=== PATIENT | male | born 1990 | race Two or more races ===

== ENCOUNTER 2023-10-06 16:45 | Inpatient (IN) | payer MEDICAID, OTHER ==
[~2023-10-06] VITALS: Ht 180.3 cm; Wt 107.0 kg
[2023-10-06] MEDS ORDERED: SODIUM CHLORIDE 0.9% 1,000 ML IV ONE (17:45)
[2023-10-06] MEDS ORDERED: ACETAMINOPHEN IV 1000 MG/100ML (10MG/ML) IV ONE (17:45)
[2023-10-06 18:11] LABS: Basophils # (auto) 0.1 10 ^3/uL (0-0.2); Eosinophils # (auto) 0 10 ^3/uL (0-0.8); Hemoglobin 18.3 g/dL (13.5-17.5)
[2023-10-06 18:13] LABS: Basophils % (auto) 0.4 % (0.0-2.0); Hematocrit 54.9 % (41.0-53.0); Lymphocytes # (auto) 0.9 10 ^3/uL (0.4-5.4); Lymphocytes % (auto) 3.8 % (10.0-50.0); Mean Corpuscular Hgb Conc. 33.4 g/dL (32.0-36.0); Mean Corpuscular Volume 89.9 fL (80.0-100.0); Monocytes # (auto) 1.5 10 ^3/uL (0-1.3); Monocytes % (auto) 6.5 % (0.0-12.0); Neutrophils % (auto) 89.3 % (37.0-80.0); Nucleated Red Blood Cells % 0.1 %; Red Blood Cells 6.11 10^6/uL (4.5-5.90); White Blood Cell 22.4 10^3/uL (4.4-10.8)
[2023-10-06 18:39] LABS: Anion Gap 12 (5-15); BUN/Creatinine Ratio 10.6 (10.0-20.0); Lipase 36 U/L (12-53); Magnesium 1.5 mg/dL (1.6-2.6)
[2023-10-06] MEDS ORDERED: PIPERACILLIN-TAZOB 3.375GM 100 ML IV ONE (19:00)
[2023-10-06 19:04] LABS: Alanine Aminotransferase 71 U/L (7-40); Albumin 4.9 g/dL (3.2-4.8); Alkaline Phosphatase 55 U/L (46-116); Aspartate Aminotransferase 31 U/L (13-40); Bilirubin, Total 2.1 mg/dL (0.2-1.0); Blood Urea Nitrogen 14 mg/dL (9-23); Calcium 9.2 mg/dL (8.7-10.4); Carbon Dioxide 21 mmol/L (20-30); Chloride 102 mmol/L (98-107); Glucose 116 mg/dL (74-106); Potassium 4.2 mmol/L (3.5-5.1); Sodium 135 mmol/L (136-145); Total Protein 7.6 g/dL (5.7-8.2)
[2023-10-06 20:05] VITALS: PULSE 114; RESP 16; O2SAT 95
[2023-10-06 21:18] LABS: INR 1.31 (0.9-1.15); Prothrombin Time 13.5 sec (9.3-11.8)
[2023-10-06] MEDS ORDERED: MORPHINE SULFATE INJ 2 MG/ml SYRG IV PRN (21:30)
[2023-10-06] MEDS ORDERED: NITROGLYCERIN 0.4 MG SL TAB SL PRN (21:30)
[2023-10-06] MEDS: SODIUM CHLORIDE 0.9% 1,000 ML IV SCH (22:06)
[2023-10-06] MEDS ORDERED: ACETAMINOPHEN 325 MG TAB PO ONE (22:15)
[2023-10-06] MEDS ORDERED: HYDROmorphone HCL 2 MG/ML VL/or syr IV ONE (23:45)
[2023-10-07 01:44] LABS: Urine Bacteria NONE SEEN /hpf (None Seen); Urine Blood 1+ /uL (Negative); Urine Clarity Clear (Clear); Urine Color Yellow (Yellow); Urine Hyaline Cast FEW /lpf (0 - 2); Urine Protein, UAD 1+ (Negative); Urine Specific Gravity 1.038 (1.001-1.035); Urine Urobilinogen Normal (Negative); Urine WBC 4 /hpf (0 - 3)
[2023-10-07] MEDS: MORPHINE SULFATE INJ 2 MG/ml SYRG IV PRN ×3 (02:05→06:44)
[2023-10-07] MEDS: PIPERACILLIN-TAZOB 3.375GM 100 ML IV SCH ×3 (04:14→20:02)
[2023-10-07] MEDS: ONDANSETRON HCL 4 MG/2 ML VIAL IV PRN (04:17)
[2023-10-07 05:12] VITALS: BP 135/70; PULSE 105; RESP 20; TEMP 97.6; O2SAT 94
[2023-10-07] MEDS: SODIUM CHLORIDE 0.9% 1,000 ML IV SCH ×2 (05:30→21:30)
[2023-10-07 06:25] LABS: Basophils # (auto) 0 10 ^3/uL (0-0.2); Basophils % (auto) 0.1 % (0.0-2.0); Eosinophils # (auto) 0 10 ^3/uL (0-0.8); Eosinophils % (auto) 0.1 % (0.0-7.0); Hematocrit 50.3 % (41.0-53.0); Lymphocytes # (auto) 0.8 10 ^3/uL (0.4-5.4); Lymphocytes % (auto) 3.8 % (10.0-50.0); Mean Corpuscular Hemoglobin 30.6 pg (28.0-32.0); Mean Corpuscular Hgb Conc. 33.7 g/dL (32.0-36.0); Mean Corpuscular Volume 90.7 fL (80.0-100.0); Monocytes # (auto) 1.4 10 ^3/uL (0-1.3); Monocytes % (auto) 7.2 % (0.0-12.0); Neutrophils # (auto) 17.5 10 ^3/uL (1.6-8.6); Neutrophils % (auto) 88.8 % (37.0-80.0); Red Blood Cells 5.55 10^6/uL (4.5-5.90); White Blood Cell 19.7 10^3/uL (4.4-10.8)
[2023-10-07 06:43] LABS: Alanine Aminotransferase 53 U/L (7-40); Albumin 4.4 g/dL (3.2-4.8); Alkaline Phosphatase 54 U/L (46-116); Anion Gap 9 (5-15); Aspartate Aminotransferase 23 U/L (13-40); BUN/Creatinine Ratio 11.4 (10.0-20.0); Blood Urea Nitrogen 15 mg/dL (9-23); Calcium 8.9 mg/dL (8.5-10.1); Carbon Dioxide 24 mmol/L (20-30); Chloride 104 mmol/L (98-107); Glucose 101 mg/dL (74-106); Potassium 4.3 mmol/L (3.5-5.1); Sodium 137 mmol/L (136-145); Total Protein 7.2 g/dL (5.7-8.2)
[2023-10-07] MEDS ORDERED: metroNIDAZOLE 500MG/100ML 100 ML IV ONE (07:15)
[2023-10-07] MEDS ORDERED: DexAMETHasone SOD PHOS 10MG/1ML VIAL INJ ONE (07:45)
[2023-10-07] MEDS ORDERED: NEOSTIGMINE 1 MG/ML INJ (10mg/10ML VIAL) ONE (07:45)
[2023-10-07] MEDS ORDERED: MEPERIDINE HCL (25 MG/ML) 1ML VIAL ONE (07:45)
[2023-10-07] MEDS ORDERED: MIDAZOLAM HCL 2MG/2ML 2ml VIAL (1mg/ml) ONE (07:45)
[2023-10-07] MEDS ORDERED: SODIUM CHLORIDE LOCK 10 ML ONE (07:45)
[2023-10-07] MEDS ORDERED: GLYCOPYRROLATE 0.2 MG/ML 1ML VIAL ONE (07:45)
[2023-10-07] MEDS ORDERED: PROPOFOL 10 MG/ML 20 ML IV ONE (07:45)
[2023-10-07] MEDS ORDERED: ONDANSETRON HCL 4 MG/2 ML VIAL ONE (07:45)
[2023-10-07] MEDS ORDERED: fentaNYL CITRATE 100 MCG/2 ML VL ONE (07:45)
[2023-10-07 08:00] VITALS: PULSE 96
[2023-10-07] MEDS ORDERED: BUPIVACAINE HCL 0.25% P/F 10 ML VIAL ONE (08:14)
[2023-10-07] MEDS ORDERED: LIDOCAINE W/ EPINEPHRINE 2% INJ 20ML VIAL ONE (08:15)
[2023-10-07] MEDS ORDERED: METOCLOPRAMIDE HCL 5MG/ml INJ 2ml VIAL IV PRN (08:15)
[2023-10-07] MEDS ORDERED: MORPHINE SULFATE INJ 2 MG/ml SYRG IV PRN (08:15)
[2023-10-07] MEDS ORDERED: HYDROmorphone HCL 2 MG/ML VL/or syr IV PRN ×2 (08:15)
[2023-10-07] MEDS ORDERED: KETOROLAC TROMETH 60MG/2ML VIAL ONE (09:20)
[2023-10-07] MEDS ORDERED: D5W/SOD CHL 0.45%/KCL 20MEQ 1,000 ML IV SCH (09:30)
[2023-10-07 09:32] VITALS: O2SAT 95
[2023-10-07] MEDS ORDERED: metroNIDAZOLE 500MG/100ML 100 ML IV SCH (14:00)
[2023-10-07] MEDS: HYDROmorphone HCL 2 MG/ML VL/or syr IV PRN ×2 (16:08→23:06)
[2023-10-07 17:00] VITALS: BP 108/68; PULSE 78; RESP 16; TEMP 98.2; O2SAT 90
[2023-10-07 20:00] VITALS: PULSE 115
[2023-10-07 22:00] VITALS: BP 131/75; PULSE 106; RESP 18; TEMP 99.6; O2SAT 97
[2023-10-08] VITALS (10 sets, daily range): BP systolic 112–150; BP diastolic 75–94; PULSE 91–107; RESP 18–22; TEMP 98.2–99.6; O2SAT 86–97
[2023-10-08] MEDS: SODIUM CHLORIDE 0.9% 1,000 ML IV SCH ×3 (01:03→20:05)
[2023-10-08] MEDS: HYDROcodone-ACET 5/325MG TAB PO PRN ×3 (02:10→20:22)
[2023-10-08] MEDS: PIPERACILLIN-TAZOB 3.375GM 100 ML IV SCH ×3 (04:16→20:22)
[2023-10-08] MEDS: HYDROmorphone HCL 2 MG/ML VL/or syr IV PRN ×4 (04:37→22:51)
[2023-10-08 06:13] LABS: Basophils # (auto) 0 10 ^3/uL (0-0.2); Basophils % (auto) 0.1 % (0.0-2.0); Eosinophils # (auto) 0 10 ^3/uL (0-0.8); Eosinophils % (auto) 0.2 % (0.0-7.0); Hematocrit 45.8 % (41.0-53.0); Hemoglobin 15.3 g/dL (13.5-17.5); Lymphocytes # (auto) 0.6 10 ^3/uL (0.4-5.4); Lymphocytes % (auto) 4.6 % (10.0-50.0); Mean Corpuscular Hemoglobin 30.3 pg (28.0-32.0); Mean Corpuscular Hgb Conc. 33.4 g/dL (32.0-36.0); Mean Corpuscular Volume 90.5 fL (80.0-100.0); Monocytes # (auto) 0.6 10 ^3/uL (0-1.3); Monocytes % (auto) 5.2 % (0.0-12.0); Neutrophils # (auto) 11.1 10 ^3/uL (1.6-8.6); Neutrophils % (auto) 89.9 % (37.0-80.0); Nucleated Red Blood Cells % 0.1 %; Red Blood Cells 5.06 10^6/uL (4.5-5.90); White Blood Cell 12.3 10^3/uL (4.4-10.8)
[2023-10-08 06:48] LABS: Alanine Aminotransferase 45 U/L (7-40); Albumin 3.9 g/dL (3.2-4.8); Alkaline Phosphatase 54 U/L (46-116); Anion Gap 10 (5-15); Aspartate Aminotransferase 13 U/L (13-40); BUN/Creatinine Ratio 13.7 (10.0-20.0); Bilirubin, Total 2.5 mg/dL (0.2-1.0); Blood Urea Nitrogen 19 mg/dL (9-23); Calcium 8.5 mg/dL (8.5-10.1); Carbon Dioxide 23 mmol/L (20-30); Chloride 102 mmol/L (98-107); Glucose 109 mg/dL (74-106); Potassium 4.3 mmol/L (3.5-5.1); Sodium 135 mmol/L (136-145); Total Protein 6.6 g/dL (5.7-8.2)
[2023-10-08] MEDS ORDERED: SODIUM CHLORIDE 0.9% 1,000 ML IV SCH (09:30)
[2023-10-08] MEDS ORDERED: IPRATROPIUM BROM 0.5 MG/2.5ML INH SOL NEB PRN (18:30)
[2023-10-08] MEDS ORDERED: ALBUTEROL SULF 2.5 MG/0.5ML(0.5%) NEB SOLN NEB PRN (18:30)
[2023-10-08 19:20] LABS: Basophils # (auto) 0 10 ^3/uL (0-0.2); Basophils % (auto) 0.1 % (0.0-2.0); Eosinophils # (auto) 0 10 ^3/uL (0-0.8); Eosinophils % (auto) 0.1 % (0.0-7.0); Hematocrit 46.6 % (41.0-53.0); Hemoglobin 15.7 g/dL (13.5-17.5); Lymphocytes # (auto) 0.5 10 ^3/uL (0.4-5.4); Lymphocytes % (auto) 3.9 % (10.0-50.0); Mean Corpuscular Hemoglobin 30.6 pg (28.0-32.0); Mean Corpuscular Hgb Conc. 33.7 g/dL (32.0-36.0); Mean Corpuscular Volume 90.9 fL (80.0-100.0); Monocytes # (auto) 0.8 10 ^3/uL (0-1.3); Monocytes % (auto) 6.4 % (0.0-12.0); Neutrophils # (auto) 11.7 10 ^3/uL (1.6-8.6); Neutrophils % (auto) 89.5 % (37.0-80.0); Nucleated Red Blood Cells % 0.1 %; Red Blood Cells 5.13 10^6/uL (4.5-5.90); Red Cell Distribution Width 14.4 % (11.8-14.3); White Blood Cell 13.1 10^3/uL (4.4-10.8)
[2023-10-08 19:36] LABS: INR 1.14 (0.9-1.15); Partial Thromboplastin Time 28.6 SEC (24.5-34.5); Prothrombin Time 11.9 sec (9.3-11.8)
[2023-10-08 19:38] LABS: Alanine Aminotransferase 50 U/L (7-40); Albumin 3.9 g/dL (3.2-4.8); Alkaline Phosphatase 53 U/L (46-116); Anion Gap 6 (5-15); Aspartate Aminotransferase 26 U/L (13-40); BUN/Creatinine Ratio 15.6 (10.0-20.0); Bilirubin, Total 2.6 mg/dL (0.2-1.0); Blood Urea Nitrogen 21 mg/dL (9-23); Calcium 8.4 mg/dL (8.7-10.4); Carbon Dioxide 30 mmol/L (20-30); Chloride 100 mmol/L (98-107); Glucose 100 mg/dL (74-106); Potassium 4.6 mmol/L (3.5-5.1); Sodium 136 mmol/L (136-145); Total Protein 6.2 g/dL (5.7-8.2)
[2023-10-08] MEDS ORDERED: ENOXAPARIN SOD 120 MG/0.8 ML SYRINGE SC ONE (20:15)
[2023-10-09] VITALS (9 sets, daily range): BP systolic 141–154; BP diastolic 91–99; PULSE 81–104; RESP 16–20; TEMP 98.3–98.9; O2SAT 95–99
[2023-10-09] MEDS: PIPERACILLIN-TAZOB 3.375GM 100 ML IV SCH (03:51)
[2023-10-09] MEDS: HYDROmorphone HCL 2 MG/ML VL/or syr IV PRN (04:02)
[2023-10-09] MEDS: ONDANSETRON HCL 4 MG/2 ML VIAL IV PRN ×2 (04:05→19:55)
[2023-10-09 05:08] LABS: Basophils # (auto) 0 10 ^3/uL (0-0.2); Basophils % (auto) 0.1 % (0.0-2.0); Eosinophils # (auto) 0.1 10 ^3/uL (0-0.8); Eosinophils % (auto) 0.5 % (0.0-7.0); Hematocrit 46.9 % (41.0-53.0); Hemoglobin 15.3 g/dL (13.5-17.5); Lymphocytes # (auto) 0.5 10 ^3/uL (0.4-5.4); Lymphocytes % (auto) 4.1 % (10.0-50.0); Mean Corpuscular Hemoglobin 29.8 pg (28.0-32.0); Mean Corpuscular Hgb Conc. 32.7 g/dL (32.0-36.0); Mean Corpuscular Volume 91.3 fL (80.0-100.0); Monocytes % (auto) 7.6 % (0.0-12.0); Neutrophils # (auto) 11.7 10 ^3/uL (1.6-8.6); Neutrophils % (auto) 87.7 % (37.0-80.0); Red Blood Cells 5.14 10^6/uL (4.5-5.90); Red Cell Distribution Width 14.3 % (11.8-14.3); White Blood Cell 13.4 10^3/uL (4.4-10.8)
[2023-10-09 05:28] LABS: Alanine Aminotransferase 40 U/L (7-40); Albumin 4.1 g/dL (3.2-4.8); Alkaline Phosphatase 46 U/L (46-116); Anion Gap 6 (5-15); Aspartate Aminotransferase 19 U/L (13-40); BUN/Creatinine Ratio 13.1 (10.0-20.0); Bilirubin, Total 2.1 mg/dL (0.2-1.0); Blood Urea Nitrogen 16 mg/dL (9-23); Calcium 8.8 mg/dL (8.7-10.4); Carbon Dioxide 29 mmol/L (20-30); Chloride 100 mmol/L (98-107); Glucose 105 mg/dL (74-106); Potassium 4.4 mmol/L (3.5-5.1); Sodium 135 mmol/L (136-145)
[2023-10-09 05:29] LABS: Total Protein 6.9 g/dL (5.7-8.2)
[2023-10-09] MEDS: SODIUM CHLORIDE 0.9% 1,000 ML IV SCH ×2 (07:50→21:10)
[2023-10-09] MEDS: KETOROLAC TROMETH 30 MG/ML 1ML VIAL IV PRN ×2 (10:42→21:51)
[2023-10-09] MEDS ORDERED: MEROPENEM 1GM IVPB 100 ML IV ONE (10:45)
[2023-10-09] MEDS ORDERED: FUROSEMIDE 20 MG/2 ML VIAL IV ONE (11:45)
[2023-10-09] MEDS ORDERED: MEROPENEM 1GM IVPB 100 ML IV SCH (14:00)
[2023-10-10] VITALS (10 sets, daily range): BP systolic 127–156; BP diastolic 76–102; PULSE 81–100; RESP 18–22; TEMP 98.5–98.9; O2SAT 91–99
[2023-10-10] MEDS: MEROPENEM 1GM IVPB 100 ML IV SCH ×3 (01:18→15:23)
[2023-10-10 06:00] LABS: Basophils # (auto) 0 10 ^3/uL (0-0.2); Basophils % (auto) 0.1 % (0.0-2.0); Eosinophils # (auto) 0.1 10 ^3/uL (0-0.8); Eosinophils % (auto) 1.3 % (0.0-7.0); Hematocrit 45.2 % (41.0-53.0); Hemoglobin 15.3 g/dL (13.5-17.5); Lymphocytes # (auto) 0.9 10 ^3/uL (0.4-5.4); Lymphocytes % (auto) 8.2 % (10.0-50.0); Mean Corpuscular Hemoglobin 30.6 pg (28.0-32.0); Mean Corpuscular Volume 90.1 fL (80.0-100.0); Monocytes # (auto) 1.2 10 ^3/uL (0-1.3); Monocytes % (auto) 11.2 % (0.0-12.0); Neutrophils # (auto) 8.3 10 ^3/uL (1.6-8.6); Neutrophils % (auto) 79.2 % (37.0-80.0); Nucleated Red Blood Cells % 0.1 %; Red Blood Cells 5.02 10^6/uL (4.5-5.90); Red Cell Distribution Width 14.5 % (11.8-14.3); White Blood Cell 10.5 10^3/uL (4.4-10.8)
[2023-10-10 06:12] LABS: Alanine Aminotransferase 30 U/L (7-40); Albumin 3.9 g/dL (3.2-4.8); Alkaline Phosphatase 48 U/L (46-116); Anion Gap 7 (5-15); Aspartate Aminotransferase 13 U/L (13-40); BUN/Creatinine Ratio 16.1 (10.0-20.0); Blood Urea Nitrogen 20 mg/dL (9-23); Calcium 8.8 mg/dL (8.7-10.4); Carbon Dioxide 30 mmol/L (20-30); Chloride 99 mmol/L (98-107); Glucose 99 mg/dL (74-106); Potassium 4.6 mmol/L (3.5-5.1); Sodium 136 mmol/L (136-145)
[2023-10-10 06:13] LABS: Bilirubin, Total 1.8 mg/dL (0.2-1.0); Total Protein 6.5 g/dL (5.7-8.2)
[2023-10-10] MEDS: HYDROcodone-ACET 5/325MG TAB PO PRN (06:41)
[2023-10-10] MEDS: SODIUM CHLORIDE 0.9% 1,000 ML IV SCH (08:26)
[2023-10-10] MEDS: ONDANSETRON HCL 4 MG/2 ML VIAL IV PRN (08:31)
[2023-10-10] MEDS: KETOROLAC TROMETH 30 MG/ML 1ML VIAL IV PRN ×2 (12:02→18:39)
[2023-10-11] MEDS: MEROPENEM 1GM IVPB 100 ML IV SCH ×4 (00:07→19:08)
[2023-10-11] MEDS: KETOROLAC TROMETH 30 MG/ML 1ML VIAL IV PRN ×4 (00:49→21:03)
[2023-10-11] MEDS: ONDANSETRON HCL 4 MG/2 ML VIAL IV PRN ×5 (00:53→22:41)
[2023-10-11 05:00] VITALS: BP 145/87; PULSE 80; RESP 19; TEMP 98; O2SAT 95
[2023-10-11 06:19] LABS: Hematocrit 47.7 % (41.0-53.0); Hemoglobin 16.2 g/dL (13.5-17.5); Mean Corpuscular Hemoglobin 30.3 pg (28.0-32.0); Mean Corpuscular Volume 89.3 fL (80.0-100.0); Red Blood Cells 5.34 10^6/uL (4.5-5.90); Red Cell Distribution Width 14.3 % (11.8-14.3); White Blood Cell 9.5 10^3/uL (4.4-10.8)
[2023-10-11 06:48] LABS: Basophils % (manual) 0 (0.0-2.0); Blast Cells 0; Metamyelocytes % 0; Myelocytes % 0; Promyelocytes % 0; Reactive Lymphocytes 0
[2023-10-11 06:52] LABS: Chloride 100 mmol/L (98-107); Potassium 4.3 mmol/L (3.5-5.1); Sodium 136 mmol/L (136-145)
[2023-10-11 06:53] LABS: Anion Gap 7 (5-15); Calcium 8.9 mg/dL (8.7-10.4); Carbon Dioxide 29 mmol/L (20-30)
[2023-10-11 06:58] LABS: BUN/Creatinine Ratio 18.2 (10.0-20.0); Blood Urea Nitrogen 22 mg/dL (9-23); Glucose 98 mg/dL (74-106)
[2023-10-11 08:00] VITALS: BP 158/102; PULSE 82; RESP 21; TEMP 98.5; O2SAT 98
[2023-10-11 08:04] LABS: Band Neutrophils % (manual) 3; Eosinophils % (manual) 1 (0-7); Lymphocytes % (manual) 11 (10.0-50.0); Monocytes % (manual) 14 (0-12); Platelet Estimate Adequate; RBC Morphology Normal
[2023-10-11 12:00] VITALS: BP 145/92; PULSE 65; RESP 21; TEMP 98.5; O2SAT 95
[2023-10-11 14:25] VITALS: O2SAT 100
[2023-10-11 16:00] VITALS: BP 154/96; PULSE 75; RESP 20; TEMP 97.7; O2SAT 95
[2023-10-11 20:00] VITALS: BP 155/100; PULSE 78; PULSE 86; RESP 24; TEMP 98.5; O2SAT 98
[2023-10-12] VITALS (7 sets, daily range): BP systolic 136–152; BP diastolic 87–102; PULSE 66–83; RESP 17–18; TEMP 98.3–98.9; O2SAT 95–98
[2023-10-12] MEDS: MEROPENEM 1GM IVPB 100 ML IV SCH ×3 (00:02→16:01)
[2023-10-12] MEDS: ONDANSETRON HCL 4 MG/2 ML VIAL IV PRN (03:56)
[2023-10-12] MEDS: KETOROLAC TROMETH 30 MG/ML 1ML VIAL IV PRN ×3 (04:05→21:26)
[2023-10-12] MEDS ORDERED: cloNIDine HCL 0.1 MG TAB PO ONE (16:45)
[2023-10-13] MEDS: MEROPENEM 1GM IVPB 100 ML IV SCH ×3 (00:04→16:13)
[2023-10-13 05:00] VITALS: BP 142/86; PULSE 67; RESP 19; TEMP 98.8; O2SAT 97
[2023-10-13 05:54] LABS: Hematocrit 46.4 % (41.0-53.0); Hemoglobin 15.1 g/dL (13.5-17.5); Mean Corpuscular Hemoglobin 29.3 pg (28.0-32.0); Mean Corpuscular Hgb Conc. 32.6 g/dL (32.0-36.0); Mean Corpuscular Volume 89.6 fL (80.0-100.0); Red Blood Cells 5.17 10^6/uL (4.5-5.90); Red Cell Distribution Width 14.4 % (11.8-14.3); White Blood Cell 13.6 10^3/uL (4.4-10.8)
[2023-10-13 06:09] LABS: Alanine Aminotransferase 41 U/L (7-40); Albumin 3.8 g/dL (3.2-4.8); Alkaline Phosphatase 46 U/L (46-116); Anion Gap 6 (5-15); Aspartate Aminotransferase 25 U/L (13-40); BUN/Creatinine Ratio 12.8 (10.0-20.0); Bilirubin, Total 2.2 mg/dL (0.2-1.0); Blood Urea Nitrogen 17 mg/dL (9-23); Calcium 9.1 mg/dL (8.7-10.4); Carbon Dioxide 30 mmol/L (20-30); Chloride 100 mmol/L (98-107); Glucose 91 mg/dL (74-106); Potassium 4.7 mmol/L (3.5-5.1); Sodium 136 mmol/L (136-145); Total Protein 6.6 g/dL (5.7-8.2)
[2023-10-13 07:12] LABS: Band Neutrophils % (manual) 0; Basophils % (manual) 0 (0.0-2.0); Blast Cells 0; Eosinophils % (manual) 0 (0-7); Metamyelocytes % 0; Promyelocytes % 0; Reactive Lymphocytes 0
[2023-10-13 08:00] VITALS: BP 136/77; PULSE 71; RESP 15; TEMP 98.1; O2SAT 99
[2023-10-13 09:00] VITALS: BP 136/77; PULSE 71; RESP 15; TEMP 98.1; O2SAT 99
[2023-10-13] MEDS ORDERED: amLODIPine BESYLATE 5 MG TAB PO ONE (11:30)
[2023-10-13] MEDS: SODIUM CHLORIDE 0.9% 1,000 ML IV SCH (11:53)
[2023-10-13 12:37] LABS: Lymphocytes % (manual) 16 (10.0-50.0); Monocytes % (manual) 8 (0-12); Myelocytes % 5; Platelet Estimate Adequate
[2023-10-13] MEDS: HYDROcodone-ACET 5/325MG TAB PO PRN ×2 (12:41→21:40)
[2023-10-13 13:00] VITALS: BP 133/85; PULSE 65; RESP 17; TEMP 98.8; O2SAT 94
[2023-10-13] MEDS ORDERED: LINEZOLID 600MG/300ML 300 ML IV ONE (13:00)
[2023-10-13 17:00] VITALS: BP 145/89; PULSE 88; RESP 19; TEMP 99; O2SAT 93
[2023-10-13] MEDS: LINEZOLID 600MG/300ML 300 ML IV SCH (21:41)
[2023-10-13 22:00] VITALS: BP 147/87; PULSE 82; RESP 20; TEMP 98.8; O2SAT 93
[2023-10-14] MEDS: MEROPENEM 1GM IVPB 100 ML IV SCH ×3 (00:02→19:35)
[2023-10-14] MEDS: SODIUM CHLORIDE 0.9% 1,000 ML IV SCH ×2 (04:10→22:58)
[2023-10-14 05:00] VITALS: BP 142/84; PULSE 69; RESP 20; TEMP 98.9; O2SAT 93
[2023-10-14] MEDS: HYDROcodone-ACET 5/325MG TAB PO PRN ×3 (05:39→22:58)
[2023-10-14 07:30] VITALS: PULSE 73; RESP 18; O2SAT 95
[2023-10-14 07:30] LABS: Anion Gap 6 (5-15); Carbon Dioxide 31 mmol/L (20-30); Chloride 100 mmol/L (98-107); Sodium 137 mmol/L (136-145)
[2023-10-14 07:31] LABS: Calcium 8.8 mg/dL (8.7-10.4)
[2023-10-14 07:36] LABS: BUN/Creatinine Ratio 11.1 (10.0-20.0); Blood Urea Nitrogen 12 mg/dL (9-23); Glucose 80 mg/dL (74-106); Hematocrit 47.4 % (41.0-53.0); Hemoglobin 15.4 g/dL (13.5-17.5); Mean Corpuscular Hemoglobin 29.4 pg (28.0-32.0); Mean Corpuscular Hgb Conc. 32.6 g/dL (32.0-36.0); Mean Corpuscular Volume 90.4 fL (80.0-100.0); Red Blood Cells 5.24 10^6/uL (4.5-5.90); Red Cell Distribution Width 14.8 % (11.8-14.3); White Blood Cell 13.9 10^3/uL (4.4-10.8)
[2023-10-14 07:50] LABS: Band Neutrophils % (manual) 0; Basophils % (manual) 0 (0.0-2.0); Blast Cells 0; Metamyelocytes % 0; Promyelocytes % 0; Reactive Lymphocytes 0
[2023-10-14 09:00] VITALS: BP 138/93; PULSE 73; RESP 20; TEMP 98.6; O2SAT 94
[2023-10-14] MEDS: amLODIPine BESYLATE 5 MG TAB PO SCH (10:49)
[2023-10-14] MEDS: LINEZOLID 600MG/300ML 300 ML IV SCH (10:49)
[2023-10-14] MEDS ORDERED: VANCOMYCIN PER PHARMACY 0 MG IV SCH (11:00)
[2023-10-14] MEDS ORDERED: VANCOMYCIN 1GM/200ML 200 ML IV SCH (11:00)
[2023-10-14 13:00] VITALS: BP 147/93; PULSE 83; RESP 18; TEMP 98.4; O2SAT 95
[2023-10-14 13:13] LABS: Eosinophils % (manual) 1 (0-7); Lymphocytes % (manual) 12 (10.0-50.0); Monocytes % (manual) 9 (0-12); Myelocytes % 4; Platelet Estimate Adequate
[2023-10-14] MEDS: metroNIDAZOLE 500 MG TAB PO SCH ×2 (14:54→22:54)
[2023-10-14 17:00] VITALS: BP 144/74; PULSE 66; RESP 18; TEMP 98.8; O2SAT 93
[2023-10-14 22:00] VITALS: BP 113/77; PULSE 77; RESP 18; TEMP 99.4; O2SAT 94
[2023-10-14] MEDS: VANCOMYCIN 1GM/200ML 200 ML IV SCH (22:55)
[2023-10-15] VITALS (7 sets, daily range): BP systolic 118–142; BP diastolic 58–83; PULSE 60–84; RESP 15–24; TEMP 97.9–98.7; O2SAT 94–96
[2023-10-15] MEDS: MEROPENEM 1GM IVPB 100 ML IV SCH ×3 (03:40→21:08)
[2023-10-15] MEDS: metroNIDAZOLE 500 MG TAB PO SCH ×3 (05:22→21:04)
[2023-10-15 05:47] LABS: Hematocrit 45.5 % (41.0-53.0); Hemoglobin 14.9 g/dL (13.5-17.5); Mean Corpuscular Hemoglobin 29.5 pg (28.0-32.0); Mean Corpuscular Hgb Conc. 32.8 g/dL (32.0-36.0); Mean Corpuscular Volume 90.1 fL (80.0-100.0); Red Blood Cells 5.05 10^6/uL (4.5-5.90); Red Cell Distribution Width 14.7 % (11.8-14.3); White Blood Cell 13.9 10^3/uL (4.4-10.8)
[2023-10-15 05:53] LABS: Anion Gap 5 (5-15); Calcium 8.6 mg/dL (8.7-10.4); Carbon Dioxide 27 mmol/L (20-30); Chloride 103 mmol/L (98-107); Potassium 4.8 mmol/L (3.5-5.1); Sodium 135 mmol/L (136-145)
[2023-10-15 05:59] LABS: BUN/Creatinine Ratio 12.7 (10.0-20.0); Blood Urea Nitrogen 14 mg/dL (9-23); Glucose 81 mg/dL (74-106)
[2023-10-15 06:12] LABS: Basophils % (manual) 0 (0.0-2.0); Blast Cells 0; Eosinophils % (manual) 0 (0-7); Promyelocytes % 0; Reactive Lymphocytes 0
[2023-10-15] MEDS: VANCOMYCIN 1GM/200ML 200 ML IV SCH ×3 (06:46→23:03)
[2023-10-15 08:16] LABS: Band Neutrophils % (manual) 11; Lymphocytes % (manual) 11 (10.0-50.0); Metamyelocytes % 8; Monocytes % (manual) 4 (0-12); Myelocytes % 3; Platelet Estimate Adequate
[2023-10-15] MEDS: amLODIPine BESYLATE 5 MG TAB PO SCH (11:30)
[2023-10-15] MEDS: HYDROcodone-ACET 5/325MG TAB PO PRN ×2 (11:31→20:37)
[2023-10-15] MEDS: SODIUM CHLORIDE 0.9% 1,000 ML IV SCH (13:30)
[2023-10-16 05:00] VITALS: BP 126/88; PULSE 62; RESP 16; TEMP 98; O2SAT 99
[2023-10-16 06:33] LABS: Basophils # (auto) 0.1 10 ^3/uL (0-0.2); Basophils % (auto) 0.4 % (0.0-2.0); Eosinophils # (auto) 0.1 10 ^3/uL (0-0.8); Eosinophils % (auto) 1.1 % (0.0-7.0); Hematocrit 44.9 % (41.0-53.0); Lymphocytes # (auto) 1.6 10 ^3/uL (0.4-5.4); Lymphocytes % (auto) 11.8 % (10.0-50.0); Mean Corpuscular Hemoglobin 30.1 pg (28.0-32.0); Mean Corpuscular Hgb Conc. 33.4 g/dL (32.0-36.0); Mean Corpuscular Volume 90.1 fL (80.0-100.0); Monocytes % (auto) 7.3 % (0.0-12.0); Neutrophils # (auto) 10.9 10 ^3/uL (1.6-8.6); Neutrophils % (auto) 79.4 % (37.0-80.0); Red Blood Cells 4.99 10^6/uL (4.5-5.90); Red Cell Distribution Width 14.6 % (11.8-14.3); White Blood Cell 13.7 10^3/uL (4.4-10.8)
[2023-10-16] MEDS: metroNIDAZOLE 500 MG TAB PO SCH ×3 (06:33→21:23)
[2023-10-16] MEDS: VANCOMYCIN 1GM/200ML 200 ML IV SCH ×3 (06:33→23:21)
[2023-10-16] MEDS: MEROPENEM 1GM IVPB 100 ML IV SCH ×3 (06:34→20:07)
[2023-10-16] MEDS: SODIUM CHLORIDE 0.9% 1,000 ML IV SCH (06:34)
[2023-10-16] MEDS: HYDROcodone-ACET 5/325MG TAB PO PRN ×3 (06:39→23:21)
[2023-10-16 08:00] VITALS: BP 123/75; PULSE 67; RESP 16; TEMP 98.1; O2SAT 95
[2023-10-16] MEDS: amLODIPine BESYLATE 5 MG TAB PO SCH (09:36)
[2023-10-16] MEDS ORDERED: FUROSEMIDE 20 MG/2 ML VIAL IV ONE (09:45)
[2023-10-16] MEDS ORDERED: POTASSIUM CHL 20 Meq TABLET PO ONE (09:45)
[2023-10-16 12:00] VITALS: BP 130/68; PULSE 69; RESP 16; TEMP 98.4; O2SAT 97
[2023-10-16 16:51] VITALS: BP 132/82; PULSE 77; RESP 16; TEMP 98.3; O2SAT 97
[2023-10-16 22:00] VITALS: BP 113/67; PULSE 65; RESP 18; TEMP 98.4; O2SAT 96
[2023-10-17] VITALS (7 sets, daily range): BP systolic 115–136; BP diastolic 68–79; PULSE 54–88; RESP 16–20; TEMP 97.7–98.8; O2SAT 96–98
[2023-10-17] MEDS: MEROPENEM 1GM IVPB 100 ML IV SCH ×3 (02:57→18:55)
[2023-10-17] MEDS: SODIUM CHLORIDE 0.9% 1,000 ML IV SCH ×2 (03:49→15:30)
[2023-10-17] MEDS: metroNIDAZOLE 500 MG TAB PO SCH ×3 (05:27→21:23)
[2023-10-17] MEDS: VANCOMYCIN 1GM/200ML 200 ML IV SCH ×3 (06:00→23:29)
[2023-10-17 06:17] LABS: Basophils # (auto) 0.1 10 ^3/uL (0-0.2); Basophils % (auto) 0.4 % (0.0-2.0); Eosinophils # (auto) 0.2 10 ^3/uL (0-0.8); Neutrophils # (auto) 10.8 10 ^3/uL (1.6-8.6); Nucleated Red Blood Cells % 0.1 %; Red Cell Distribution Width 14.8 % (11.8-14.3)
[2023-10-17 06:20] LABS: Eosinophils % (auto) 1.2 % (0.0-7.0); Hematocrit 46.6 % (41.0-53.0); Hemoglobin 15.4 g/dL (13.5-17.5); Lymphocytes # (auto) 1.7 10 ^3/uL (0.4-5.4); Lymphocytes % (auto) 12.7 % (10.0-50.0); Mean Corpuscular Hemoglobin 29.6 pg (28.0-32.0); Mean Corpuscular Hgb Conc. 33.1 g/dL (32.0-36.0); Mean Corpuscular Volume 89.5 fL (80.0-100.0); Monocytes # (auto) 0.9 10 ^3/uL (0-1.3); Monocytes % (auto) 6.9 % (0.0-12.0); Neutrophils % (auto) 78.8 % (37.0-80.0); Red Blood Cells 5.21 10^6/uL (4.5-5.90); White Blood Cell 13.7 10^3/uL (4.4-10.8)
[2023-10-17] MEDS: amLODIPine BESYLATE 5 MG TAB PO SCH (08:52)
[2023-10-17] MEDS: HYDROcodone-ACET 5/325MG TAB PO PRN ×2 (14:51→21:24)
[2023-10-18] VITALS (7 sets, daily range): BP systolic 121–137; BP diastolic 67–79; PULSE 69–88; RESP 18–21; TEMP 97.3–98.2; O2SAT 92–100
[2023-10-18] MEDS: MEROPENEM 1GM IVPB 100 ML IV SCH ×3 (02:29→18:26)
[2023-10-18 04:59] LABS: White Blood Cell 12.9 10^3/uL (4.4-10.8)
[2023-10-18 05:01] LABS: Hematocrit 46.5 % (41.0-53.0); Hemoglobin 15.8 g/dL (13.5-17.5); Mean Corpuscular Hemoglobin 30.4 pg (28.0-32.0); Mean Corpuscular Hgb Conc. 33.9 g/dL (32.0-36.0); Mean Corpuscular Volume 89.6 fL (80.0-100.0); Red Blood Cells 5.19 10^6/uL (4.5-5.90); Red Cell Distribution Width 14.7 % (11.8-14.3)
[2023-10-18 05:17] LABS: Basophils % (manual) 0 (0.0-2.0); Blast Cells 0; Eosinophils % (manual) 0 (0-7); Metamyelocytes % 0; Myelocytes % 0; Promyelocytes % 0; Reactive Lymphocytes 0
[2023-10-18] MEDS: metroNIDAZOLE 500 MG TAB PO SCH ×3 (05:34→21:16)
[2023-10-18] MEDS: VANCOMYCIN 1GM/200ML 200 ML IV SCH ×3 (05:57→23:16)
[2023-10-18 07:09] LABS: Band Neutrophils % (manual) 3; Lymphocytes % (manual) 11 (10.0-50.0); Monocytes % (manual) 1 (0-12)
[2023-10-18 07:14] LABS: Platelet Estimate Increased; RBC Morphology Normal
[2023-10-18] MEDS: SODIUM CHLORIDE 0.9% 1,000 ML IV SCH ×2 (08:24→21:16)
[2023-10-18] MEDS: amLODIPine BESYLATE 5 MG TAB PO SCH (08:25)
[2023-10-18] MEDS: HYDROcodone-ACET 5/325MG TAB PO PRN ×2 (08:27→17:22)
[2023-10-19] VITALS (7 sets, daily range): BP systolic 116–132; BP diastolic 68–76; PULSE 59–98; RESP 18–20; TEMP 98–98.8; O2SAT 95–98
[2023-10-19] MEDS: HYDROcodone-ACET 5/325MG TAB PO PRN (02:10)
[2023-10-19] MEDS: MEROPENEM 1GM IVPB 100 ML IV SCH ×3 (02:14→20:14)
[2023-10-19] MEDS: metroNIDAZOLE 500 MG TAB PO SCH ×3 (05:44→22:04)
[2023-10-19] MEDS: amLODIPine BESYLATE 5 MG TAB PO SCH (09:21)
[2023-10-19] MEDS: VANCOMYCIN 1GM/200ML 200 ML IV SCH ×3 (09:22→23:14)
[2023-10-19] MEDS: SODIUM CHLORIDE 0.9% 1,000 ML IV SCH (17:30)
[2023-10-19] MEDS: ACETAMINOPHEN 325 MG TAB PO PRN (22:04)
[2023-10-20] MEDS: MEROPENEM 1GM IVPB 100 ML IV SCH ×3 (02:29→20:03)
[2023-10-20] MEDS: ACETAMINOPHEN 325 MG TAB PO PRN (03:44)
[2023-10-20 05:00] VITALS: BP 132/75; PULSE 76; RESP 18; TEMP 98; O2SAT 97
[2023-10-20 05:53] LABS: Basophils # (auto) 0.1 10 ^3/uL (0-0.2); Basophils % (auto) 0.7 % (0.0-2.0); Eosinophils # (auto) 0.2 10 ^3/uL (0-0.8); Eosinophils % (auto) 1.7 % (0.0-7.0); Hemoglobin 15.5 g/dL (13.5-17.5); Lymphocytes # (auto) 1.8 10 ^3/uL (0.4-5.4)
[2023-10-20 05:55] LABS: Hematocrit 46.1 % (41.0-53.0); Mean Corpuscular Hemoglobin 30.2 pg (28.0-32.0); Mean Corpuscular Hgb Conc. 33.7 g/dL (32.0-36.0); Mean Corpuscular Volume 89.8 fL (80.0-100.0); Monocytes # (auto) 1.3 10 ^3/uL (0-1.3); Monocytes % (auto) 11.7 % (0.0-12.0); Neutrophils # (auto) 7.7 10 ^3/uL (1.6-8.6); Neutrophils % (auto) 69.9 % (37.0-80.0); Nucleated Red Blood Cells % 0.2 %; Red Blood Cells 5.13 10^6/uL (4.5-5.90); Red Cell Distribution Width 14.8 % (11.8-14.3)
[2023-10-20] MEDS: metroNIDAZOLE 500 MG TAB PO SCH ×3 (06:36→21:11)
[2023-10-20] MEDS: VANCOMYCIN 1GM/200ML 200 ML IV SCH ×3 (06:36→23:49)
[2023-10-20 08:47] VITALS: BP 129/68; PULSE 70; RESP 20; TEMP 98; O2SAT 97
[2023-10-20] MEDS: SODIUM CHLORIDE 0.9% 1,000 ML IV SCH (09:53)
[2023-10-20] MEDS ORDERED: traMADol HCL 50 MG TAB PO PRN (11:15)
[2023-10-20 12:38] VITALS: BP 140/73; PULSE 80; RESP 20; TEMP 98.3; O2SAT 97
[2023-10-20 16:35] VITALS: BP 113/62; PULSE 75; RESP 21; TEMP 98.2; O2SAT 98
[2023-10-20 20:00] VITALS: PULSE 92; RESP 18
[2023-10-20 22:00] VITALS: BP 122/83; PULSE 92; RESP 18; TEMP 98.4; O2SAT 97
[2023-10-21] MEDS: ACETAMINOPHEN 325 MG TAB PO PRN (00:16)
[2023-10-21] MEDS: MEROPENEM 1GM IVPB 100 ML IV SCH ×2 (04:57→10:18)
[2023-10-21 05:00] VITALS: BP 124/79; PULSE 73; RESP 18; TEMP 98.2; O2SAT 98
[2023-10-21] MEDS: metroNIDAZOLE 500 MG TAB PO SCH (07:14)
[2023-10-21] MEDS: VANCOMYCIN 1GM/200ML 200 ML IV SCH (07:15)
[2023-10-21 09:00] VITALS: BP 134/73; PULSE 73; RESP 20; TEMP 98.4; O2SAT 95
[2023-10-21] MEDS ORDERED: LEVO500T91 PO (10:21)
[2023-10-21] MEDS ORDERED: TRAM50TA2 PO (10:21)
[2023-10-21] MEDS ORDERED: MET500T PO (10:21)
== END 2023-10-21 11:30 | disposition home or self-care (01) | DRG 710 ==
LOC: ER 16:45 → TELE 21:40 → TELE-EAST 10-07 05:18 → EAST 10-10 16:29
PROVIDERS: ADMIT Nurse Practitioner; ATTEND Internal Medicine
PROC: 0DTJ4ZZ Resection of Appendix, Percutaneous Endoscopic Approach (ICD-10-PCS; principal; 2023-10-07 08:32)
DX: A41.52 Sepsis due to Pseudomonas (principal); N17.0 Acute kidney failure with tubular necrosis; J96.00 Acute respiratory failure, unspecified whether with hypoxia or hypercapnia; K35.32 Acute appendicitis with perforation, localized peritonitis, and gangrene, without abscess; K56.7 Ileus, unspecified; D72.829 Elevated white blood cell count, unspecified; J98.11 Atelectasis; E66.9 Obesity, unspecified; D75.839 Thrombocytosis, unspecified; A41.51 Sepsis due to Escherichia coli [E. coli]; A41.81 Sepsis due to Enterococcus; Z16.12 Extended spectrum beta lactamase (ESBL) resistance; Z91.010 Allergy to peanuts; Z68.32 Body mass index [BMI] 32.0-32.9, adult
CPT/HCPCS: 36415; 36600; 71045; 71046; 74176; 74177; 78226; 80048; 80053; 80202; 81001; 82565; 82805; 82962; 83605; 83690; 83735; 84132; 84484; 85007; 85025; 85027; 85379; 85610; 85730; 86850; 86900; 86901; 87040; 87070; 87075; 87076; 87077; 87186; 87205; 93970; G0378; J0131; J1100; J1885; J2185; J2250; J2405; J2543; J2704; J3490

== ENCOUNTER 2023-12-27 11:28 | Emergency (ER) | payer MEDICAID ==
[~2023-12-27] VITALS: Ht 170.2 cm; Wt 100.8 kg
[~2023-12-27 11:28] MED LIST: HYDR-4902 PO
[2023-12-27 13:54] VITALS: BP 143/87; PULSE 80; RESP 16; O2SAT 98
== END 2023-12-27 13:55 | disposition home or self-care (01) ==
LOC: ER 11:28
DX: Z45.2 Encounter for adjustment and management of vascular access device (principal); Z90.49 Acquired absence of other specified parts of digestive tract; Z79.899 Other long term (current) drug therapy; Z91.010 Allergy to peanuts